=== PATIENT | male | born 2000 | race Caucasian/White ===

== ENCOUNTER 2024-08-07 14:37 | Emergency (ER) | payer SELFPAY ==
[~2024-08-07] VITALS: Ht 170.2 cm; Wt 70.0 kg
[2024-08-07 14:39] VITALS: O2SAT 100
[2024-08-07] MEDS ORDERED: ACETAMINOPHEN 325MG TABLET ONE ×2 (14:49→14:51)
[2024-08-07 14:54] VITALS: TEMP 103
[2024-08-07] MEDS: ACETAMINOPHEN 325MG TABLET PO ONE (14:54)
[2024-08-07 16:09] VITALS: BP 103/59; PULSE 110; RESP 20; O2SAT 100
[2024-08-07] MEDS: HYDROXYZINE 25MG TABLET PO ONE (16:13)
[2024-08-07] MEDS ORDERED: TOPUD MT (16:51)
[2024-08-07] MEDS ORDERED: ONDA4TAB50 MT (16:51)
[2024-08-07] MEDS ORDERED: IBUP-1523 MT (16:51)
[2024-08-07] MEDS ORDERED: DEXT30SU17 MT (16:51)
== END 2024-08-07 17:33 | disposition home or self-care (01) ==
LOC: ER 14:37
DX: J20.9 Acute bronchitis, unspecified (principal)
CPT/HCPCS: 93005; 99283